=== PATIENT | male | born 1995 | race Caucasian/White ===

== ENCOUNTER 2017-05-10 16:45 | Inpatient (IN) | payer OTHER ==
[2017-05-10 17:40] LABS: ABS Basophils 0 10^3/ul (0-0.2); ABS Eosinophils 0 10^3/ul (0-0.6); ABS Lymphocytes 1.1 10^3/ul (1.0-4.8); ABS Monocytes 0.4 10^3/ul (0-0.8); ABS Neutrophils 5.6 10^3/ul (1.5-7.7); ABS Nucleated RBC 0 10^3/ul; Eosinophil % 0.3 % (0-6); Hematocrit 47 % (42-52); Hemoglobin 15.7 g/dl (14.0-18.0); Lymphocyte % 15.3 % (25-47); Mean Corpuscular HGB Conc 34 g/dl (31-36); Mean Corpuscular Hemoglobin 29 pg (27-31); Mean Corpuscular Volume 86 fL (80-94); Mean Platelet Volume 9 um3 (7.4-10.4); Nucleated Red Blood Cells % 0; Platelet Count 238 10^3/ul (150-450); Red Blood Count 5.39 10^6/ul (4.0-5.4); Red Cell Distribution Width 13 % (10.5-15); White Blood Count 7.1 10^3/ul (3.5-10.8)
[2017-05-10 17:45] LABS: Urine Appearance Clear; Urine Blood Negative (Negative); Urine Color Yellow; Urine Ketones Negative (Negative); Urine Protein Negative (Negative); Urine Specific Gravity 1.025 (1.010-1.030); Urine Urobilinogen Positive (Negative)
[2017-05-10 17:58] LABS: EGFR Non-African American 104.2 (>60)
--- NOTE | 2017-05-10 21:31 | ED ---
Genia Martinez Julia, scribed for Dima Styles MD on 05/10/17 at 1702 . Psychiatric Complaint - HPI Summary HPI Summary: This patient is a 21 year old M brought to [place] [address] from [place] due to multiple self inflicted lacerations to the neck and face. Patient states he did not go to class for a few days and his professor asked that he be checked up on. He states he was found in his apartment with lacerations. He reports a history of self-cutting about two years ago. He states he was taking medication with his previous episode of cutting, but is not currently taking any medication - History Of Current Complaint Time Seen by Provider: 05/10/17 16:57 Hx Obtained From: Patient Onset/Duration: Lasting Days Character: Depressed Related History: Positive For: Prior Psychiatric Issues - Allergies/Home Medications Allergies/Adverse Reactions: Allergies Allergy/AdvReac Type Severity Reaction Status Date / Time No Known Allergies Allergy Verified 05/10/17 17:02 Home Medications: Home Medications NK [No Home Medications Reported] 05/10/17 [History Confirmed 05/10/17] PMH/Surg Hx/FS Hx/Imm Hx EENT History: Denies: Hx Deafness Psychiatric History: Reports: Other Psychiatric Issues/Disorders - hx of self harming - Social History Occupation: Student Review of Systems Negative: Fever Positive: Other - lacerations to the face, neck and forearms All Other Systems Reviewed And Are Negative: Yes Physical Exam - Summary Physical Exam Summary: Appearance: The patient is well-nourished in no acute distress and in no acute pain. Skin: The skin is warm and dry and skin color reflects adequate perfusion. Superficial lacerations to left neck, bilateral face, and bilateral forearms. HEENT: The head is normocephalic and atraumatic. The pupils are equal and reactive. The conjunctivae are clear and without drainage. Nares are patent and without drainage. Mouth reveals moist mucous membranes and the throat is without erythema and exudate. The external ears are intact. The ear canals are patent and without drainage. The tympanic membranes are intact. Superficial lacerations are present on face bilaterally. Neck: the neck is supple with full range of motion and non-tender. There are no carotid bruits. There is no neck vein distension. Superficial laceration to left neck Respiratory: Chest is non-tender. Lungs are clear to auscultation and breath sounds are symmetrical and equal. Cardiovascular: Heart is regular rate and rhythm. There is no murmur or rub auscultated. There is no peripheral edema and pulses are symmetrical and equal. Abdomen: The abdomen is soft and non-tender. There are normal bowel sounds heard in all four quadrants and there is no organomegaly palpated. Musculoskeletal: There is no back tenderness noted. Extremities are non-tender with full range of motion. There is good capillary refill. There is no peripheral edema or calf tenderness elicited. Superficial lacerations to forearms bilaterally. Neurological: Patient is alert and oriented to person, place and time. The patient has symmetrical motor strength in all four extremities. Cranial nerves are grossly intact. Deep tendon reflexes are symmetrical and equal in all four extremities. Psychiatric: The patient has an appropriate affect and does not exhibit any anxiety or depression. Triage Information Reviewed: Yes Vital Signs On Initial Exam: Initial Vitals Temp Pulse Resp BP Pulse Ox 98.9 F 70 18 135/81 100 05/10/17 16:50 05/10/17 16:50 05/10/17 16:50 05/10/17 16:50 05/10/17 16:50 Vital Signs Reviewed: Yes Diagnostics - Vital Signs Vital Signs Temp Pulse Resp BP Pulse Ox 05/10/17 19:33 98.2 F 65 16 131/77 100 05/10/17 16:50 98.9 F 70 18 135/81 100 - Laboratory Lab Results: Lab Results 05/10/17 05/10/17 05/10/17 Range/Units 17:25 17:25 17:26 WBC 7.1 (3.5-10.8) 10^3/ul RBC 5.39 (4.0-5.4) 10^6/ul Hgb 15.7 (14.0-18.0) g/dl Hct 47 (42-52) % MCV 86 (80-94) fL MCH 29 (27-31) pg MCHC 34 (31-36) g/dl RDW 13 (10.5-15) % Plt Count 238 (150-450) 10^3/ul MPV 9 (7.4-10.4) um3 Neut % (Auto) 78.6 (38-83) % Lymph % (Auto) 15.3 L (25-47) % Hampton % (Auto) 5.3 (0-7) % Eos % (Auto) 0.3 (0-6) % Baso % (Auto) 0.5 (0-2) % Absolute Neuts (auto) 5.6 (1.5-7.7) 10^3/ul Absolute Lymphs (auto) 1.1 (1.0-4.8) 10^3/ul Absolute Monos (auto) 0.4 (0-0.8) 10^3/ul Absolute Eos (auto) 0 (0-0.6) 10^3/ul Absolute Basos (auto) 0 (0-0.2) 10^3/ul Absolute Nucleated RBC 0 10^3/ul Nucleated RBC % 0 Sodium 139 (133-145) mmol/L Potassium 3.9 (3.5-5.0) mmol/L Chloride 105 (101-111) mmol/L Carbon Dioxide 27 (22-32) mmol/L Anion Gap 7 (2-11) mmol/L BUN 11 (6-24) mg/dL Creatinine 0.91 (0.67-1.17) mg/dL Est GFR ( Amer) 134.0 (>60) Est GFR (Non-Af Amer) 104.2 (>60) BUN/Creatinine Ratio 12.1 (8-20) Glucose 95 (70-100) mg/dL Calcium 9.8 (8.6-10.3) mg/dL Total Bilirubin 1.00 (0.2-1.0) mg/dL AST 12 L (13-39) U/L ALT 10 (7-52) U/L Alkaline Phosphatase 72 (34-104) U/L Total Protein 7.9 (6.4-8.9) g/dL Albumin 5.0 (3.2-5.2) g/dL Globulin 2.9 (2-4) g/dL Albumin/Globulin Ratio 1.7 (1-3) TSH 0.33 L (0.34-5.60) mcIU/mL Urine Color Urine Appearance Urine pH (5-9) Ur Specific Willits (1.010-1.030) Urine Protein (Negative) Urine Ketones (Negative) Urine Blood (Negative) Urine Nitrate (Negative) Urine Bilirubin (Negative) Urine Urobilinogen (Negative) Ur Leukocyte Esterase (Negative) Urine Glucose (Negative) Salicylates < 2.50 (<30) mg/dL Urine Opiates Screen None detected (None Detect) Acetaminophen < 15 mcg/mL Ur Barbiturates Screen None detected (None Detect) Ur Phencyclidine Scrn None detected (None Detect) Ur Amphetamines Screen None detected (None Detect) U Benzodiazepines Scrn None detected (None Detect) Urine Cocaine Screen None detected (None Detect) U Cannabinoids Screen None detected (None Detect) Serum Alcohol < 10 (<10) mg/dL 05/10/17 Range/Units 17:26 WBC (3.5-10.8) 10^3/ul RBC (4.0-5.4) 10^6/ul Hgb (14.0-18.0) g/dl Hct (42-52) % MCV (80-94) fL MCH (27-31) pg MCHC (31-36) g/dl RDW (10.5-15) % Plt Count (150-450) 10^3/ul MPV (7.4-10.4) um3 Neut % (Auto) (38-83) % Lymph % (Auto) (25-47) % Hampton % (Auto) (0-7) % Eos % (Auto) (0-6) % Baso % (Auto) (0-2) % Absolute Neuts (auto) (1.5-7.7) 10^3/ul Absolute Lymphs (auto) (1.0-4.8) 10^3/ul Absolute Monos (auto) (0-0.8) 10^3/ul Absolute Eos (auto) (0-0.6) 10^3/ul Absolute Basos (auto) (0-0.2) 10^3/ul Absolute Nucleated RBC 10^3/ul Nucleated RBC % Sodium (133-145) mmol/L Potassium (3.5-5.0) mmol/L Chloride (101-111) mmol/L Carbon Dioxide (22-32) mmol/L Anion Gap (2-11) mmol/L BUN (6-24) mg/dL Creatinine (0.67-1.17) mg/dL Est GFR ( Amer) (>60) Est GFR (Non-Af Amer) (>60) BUN/Creatinine Ratio (8-20) Glucose (70-100) mg/dL Calcium (8.6-10.3) mg/dL Total Bilirubin (0.2-1.0) mg/dL AST (13-39) U/L ALT (7-52) U/L Alkaline Phosphatase (34-104) U/L Total Protein (6.4-8.9) g/dL Albumin (3.2-5.2) g/dL Globulin (2-4) g/dL Albumin/Globulin Ratio (1-3) TSH (0.34-5.60) mcIU/mL Urine Color Yellow Urine Appearance Clear Urine pH 6.0 (5-9) Ur Specific Willits 1.025 (1.010-1.030) Urine Protein Negative (Negative) Urine Ketones Negative (Negative) Urine Blood Negative (Negative) Urine Nitrate Negative (Negative) Urine Bilirubin Negative (Negative) Urine Urobilinogen Positive A (Negative) Ur Leukocyte Esterase Negative (Negative) Urine Glucose Negative (Negative) Salicylates (<30) mg/dL Urine Opiates Screen (None Detect) Acetaminophen mcg/mL Ur Barbiturates Screen (None Detect) Ur Phencyclidine Scrn (None Detect) Ur Amphetamines Screen (None Detect) U Benzodiazepines Scrn (None Detect) Urine Cocaine Screen (None Detect) U Cannabinoids Screen (None Detect) Serum Alcohol (<10) mg/dL Result Diagrams: 05/10/17 17:25 05/10/17 17:25 Lab Statement: Any lab studies that have been ordered have been reviewed, and results considered in the medical decision making process. Course/Dx - Course Course Of Treatment: Mr. Floyd presented on a 945 after having been found with superficial lacerations to his face and neck. He admits to doing them but can' t explain why. He was medically cleared and had a MHE. They felt that he was unsafe for D/C and admitted him on a 939. - Differential Dx/Clinical Impression Provider Diagnosis: Depression Discharge - Discharge Plan Condition: Stable Disposition: [facility]CHIATRIC FAC[facility] [place] Referrals: [facility] - Evaristo SHARMA [Primary Care Provider] - The documentation as recorded by the Genia stoner Julia accurately reflects the service I personally performed and the decisions made by me, Dima Styles MD.
[2017-05-11] MEDS ORDERED: Al Hydrox/Mg Hydrox/Simet LIQ* 30 ML UDC PO PRN (01:38)
[2017-05-11] MEDS ORDERED: Acetaminophen TAB* 325 MG PO PRN (01:38)
[2017-05-11] MEDS: Vitamin THERAPEUTIC TAB PO SCH (12:12)
[2017-05-11] MEDS ORDERED: cloNIDine TAB* 0.1 MG PO PRN (13:14)
[2017-05-11] MEDS ORDERED: Magnesium Hydroxide LIQ* 30 ML UDC PO PRN (13:45)
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
[2017-05-12] MEDS: Sertraline* 50 MG TAB PO SCH (09:09)
[2017-05-12] MEDS: Vitamin THERAPEUTIC TAB PO SCH (09:09)
[2017-05-12] MEDS ORDERED: Loperamide CAP* 2 MG PO PRN (15:35)
--- NOTE | 2017-05-12 16:17 | PN ---
Subjective - Subjective Date of Service: 05/12/17 Service Type: [id number] Hosp care 15 min low complexity Subjective: Alfredo is seen in weekend coverage for [employer] Allison Cardenas. He remains anxious, mostly self-sequestered to his room, appearing fearful of the milieu and his new roommate in particular. Staff notes that he has been complaining of diarrhea today. On exam he is lying in bed, appearing to hide under his covers. He states that he misses his family in [place]. He is tolerating initiation of sertraline well so far. He denies SI. Objective - Appearance Appearance: Well Developed/Nourished Dysmorphic Features: No Hygiene: Normal Grooming: Fairly Well Kept - Behavior Psychomotor Activities: Abnormal-Decreased Exhibits Abnormal Movement: No - Attitude and Relatedness Attitude and Relatedness: Guarded Eye Contact: Fair - Speech Quality: Unpressured Latencies: Normal Quantity: Terse - Mood Patient's Decription of Mood: "Anxious" - Affect Observed Affect: Constricted Affect Consistent with: Dysphoria - Thought Process Patient's Thought Process: Coherent Thought Content: No Passive Wish, No Suicidal Planning, No Homicidal Ideation, No Paranoid Ideation - Sensorium Experiencing Hallucinations: No, Sensorium is Clear Type of Hallucinations: Visual: No, Auditory: No, Command: No - Level of Consciousness Level of Consciousness: Alert Orientation: Yes Intact, Yes Orientated to Time, Yes Orientated to Place, Yes Orientated to Person - Impulse Control Impulse Control: Tenuous - Insight and Judgement Insight and Judgement: Fair - Group Participation Particating in Group Activities: No - Medication Management Medication Management Adherence: Yes Assessment - Assessment Merits Inpatient Hospitalization: For Immediate Safety, For Stabilization Inpatient DSM-V Dx: F43.10 Clinical Impression: 21 y.o. 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 Plan - Plan Treatment Plan: Name: GUMARO AGUIRRE Birthdate: 1995 [id number] The patient has been started on a trial of sertraline 50mg PO qday and prn clonidine for anxiety. Continue to treat on the inpatient unit. Continued Medication Management: Start Medication Medications: Current Medications Acetaminophen (Tylenol Tab*) 650 mg PO Q4H PRN PRN Reason: PAIN or TEMP > 101 F Al Hydrox/Mg Hydrox/Simethicone (Maalox Plus*) 30 ml PO Q4H PRN PRN Reason: INDIGESTION Clonidine HCl (Catapres Tab*) 0.1 mg PO BEDTIME PRN PRN Reason: INSOMNIA Loperamide HCl (Imodium Cap*) 2 mg PO .SEE DIRECTIONS PRN PRN Reason: DIARRHEA Multivitamins (Theragran Tab*) 1 tab PO DAILY COUNTS INCLUDE 234 BEDS AT THE [facility] Last Admin: 05/12/17 09:09 Dose: 1 tab Sertraline HCl (Zoloft*) 50 mg PO DAILY COUNTS INCLUDE 234 BEDS AT THE [facility] Last Admin: 05/12/17 09:09 Dose: 50 mg - Discharge Plan Discharge Plan: Inpatient Hospitalization
[2017-05-13] MEDS: Vitamin THERAPEUTIC TAB PO SCH (08:37)
[2017-05-13] MEDS: Sertraline* 50 MG TAB PO SCH (08:38)
[2017-05-14] MEDS: Sertraline* 50 MG TAB PO SCH (08:34)
[2017-05-14] MEDS: Vitamin THERAPEUTIC TAB PO SCH (08:34)
[2017-05-14 08:35] VITALS: BP 120/74
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
== END 2017-05-14 13:15 | disposition home or self-care (01) | DRG 882 ==
LOC: ED 16:45 → BSU 23:18
PROVIDERS: ADMIT Psychiatry & Neurology Psychiatry; ATTEND Psychiatry & Neurology Psychiatry
DX: F43.10 Post-traumatic stress disorder, unspecified (principal); R45.851 Suicidal ideations
CPT/HCPCS: 36415; 80053; 80307; 80320; 80329; 81003; 84443; 85025; 99222; 99231; 99285; A9270-GY; G0480